=== PATIENT | male | born 2000 | race African-American/Black ===

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

== ENCOUNTER 2021-10-01 00:27 | Inpatient (IN) | payer MEDICAID ==
[~2021-10-01] VITALS: Ht 175.3 cm; Wt 65.8 kg
[2021-10-01 01:00] LABS: Basophils % (auto) 0.4 % (0.0-2.0); Eosinophils # (auto) 0.4 10 ^3/uL (0-0.8); Hemoglobin 13.7 g/dL (13.5-17.5); Monocytes # (auto) 1.5 10 ^3/uL (0-1.3); Neutrophils # (auto) 8.6 10 ^3/uL (1.6-8.6)
[2021-10-01 01:04] LABS: Basophils # (auto) 0.1 10 ^3/uL (0-0.2); Eosinophils % (auto) 3.1 % (0.0-7.0); Hematocrit 40.9 % (41.0-53.0); Lymphocytes # (auto) 1.9 10 ^3/uL (0.4-5.4); Lymphocytes % (auto) 15.7 % (10.0-50.0); Mean Corpuscular Hemoglobin 27.1 pg (28.0-32.0); Mean Corpuscular Hgb Conc. 33.6 g/dL (32.0-36.0); Mean Corpuscular Volume 80.5 fL (80.0-100.0); Neutrophils % (auto) 68.8 % (37.0-80.0); Red Blood Cells 5.08 10^6/uL (4.5-5.90); White Blood Cell 12.4 10^3/uL (4.4-10.8)
[2021-10-01 01:21] LABS: Albumin 3.5 g/dL (3.4-5.0); Calcium 9.2 mg/dL (8.5-10.1); Potassium 3.4 mmol/L (3.5-5.1)
[2021-10-01 01:24] LABS: BUN/Creatinine Ratio 19.3
[2021-10-01 01:27] LABS: Bilirubin, Total 0.6 mg/dL (0.2-1.0); Total Protein 7.9 g/dL (6.4-8.2)
[2021-10-01 02:09] LABS: Alcohol, Urine < 3.0 mg/dL (0-10); Amphetamine Screen, Urine NEGATIVE (NEGATIVE); Barbiturate Scree,Urine NEGATIVE (NEGATIVE); Benzodiazephine Screen, Urine NEGATIVE (NEGATIVE); Cannabinoid Screen, Urine POSITIVE (NEGATIVE); Cocaine Screen, Urine NEGATIVE (NEGATIVE); Opiate Scree,Urine NEGATIVE (NEGATIVE); Phencyclidine Screen, Urine NEGATIVE (NEGATIVE)
[2021-10-01 02:26] LABS: Urine Amorphous Crystal FEW /hpf (None Seen); Urine Bacteria NONE SEEN /hpf (None Seen); Urine Blood Negative /uL (Negative); Urine Mucus FEW (None Seen); Urine Specific Gravity 1.031 (1.001-1.035); Urine WBC 2 /hpf (0 - 3)
[2021-10-01] MEDS ORDERED: ACETAMINOPHEN 325 MG TAB PO PRN (08:30)
[2021-10-01] MEDS ORDERED: POTASSIUM CHL 20 Meq TABLET PO ONE ×2 (08:30→11:30)
[2021-10-01] MEDS ORDERED: ONDANSETRON HCL 4 MG/2 ML VIAL IV PRN (08:30)
[2021-10-01] MEDS ORDERED: MORPHINE SULFATE INJ 2 MG/ml SYRG IV PRN ×2 (08:30→09:15)
[2021-10-01] MEDS ORDERED: HYDROcodone-ACET 5/325MG TAB PO PRN (08:30)
[2021-10-01] MEDS ORDERED: DOCUSATE SOD 100 MG CAP PO PRN (08:30)
[2021-10-01 09:10] LABS: Basophils # (auto) 0 10 ^3/uL (0-0.2); Hemoglobin 13.7 g/dL (13.5-17.5)
[2021-10-01 09:11] LABS: Basophils % (auto) 0.2 % (0.0-2.0); Eosinophils # (auto) 0.3 10 ^3/uL (0-0.8); Eosinophils % (auto) 2.6 % (0.0-7.0); Hematocrit 42.5 % (41.0-53.0); Lymphocytes # (auto) 1.6 10 ^3/uL (0.4-5.4); Mean Corpuscular Hemoglobin 25.8 pg (28.0-32.0); Mean Corpuscular Hgb Conc. 32.1 g/dL (32.0-36.0); Mean Corpuscular Volume 80.2 fL (80.0-100.0); Monocytes # (auto) 1.4 10 ^3/uL (0-1.3); Monocytes % (auto) 13.1 % (0.0-12.0); Neutrophils # (auto) 7.5 10 ^3/uL (1.6-8.6); Neutrophils % (auto) 69.1 % (37.0-80.0); White Blood Cell 10.9 10^3/uL (4.4-10.8)
[2021-10-01] MEDS ORDERED: NITROGLYCERIN 0.4 MG SL TAB SL PRN (09:15)
[2021-10-01 09:27] LABS: Albumin 3.1 g/dL (3.4-5.0); Calcium 8.8 mg/dL (8.5-10.1); Potassium 3.1 mmol/L (3.5-5.1)
[2021-10-01 09:31] LABS: BUN/Creatinine Ratio 19.4; Bilirubin, Total 0.5 mg/dL (0.2-1.0); Total Protein 7.6 g/dL (6.4-8.2)
[2021-10-01] MEDS ORDERED: FAMOTIDINE (10MG/ML) 2ML VL IV SCH (10:00)
[2021-10-01] MEDS: ASPirin 81 mg TAB PO SCH (10:14)
[2021-10-01] MEDS: ENOXAPARIN SOD 40 MG/0.4 ML SYRINGE SC SCH (10:15)
[2021-10-01] MEDS ORDERED: PANTOPRAZOLE 40 MG TAB PO ONE (11:30)
[2021-10-01] MEDS ORDERED: COLCHICINE 0.6 MG CAP PO ONE (11:30)
[2021-10-01 11:45] LABS: Magnesium 2.2 mg/dL (1.6-2.6)
[2021-10-01 11:54] LABS: CRP High Sensitivity 7.71 mg/dL (< 0.3)
[2021-10-01] MEDS: IBUPROFEN 600 MG TAB PO SCH ×3 (14:00→22:20)
[2021-10-01] MEDS: SODIUM CHLOR 0.9% PF (SALINE LOCK) 10ML VIAL/SYR IV SCH ×2 (14:24→21:37)
[2021-10-01] MEDS ORDERED: MORPHINE SULFATE INJ 2 MG/ml SYRG IV ONE (21:30)
[2021-10-01 22:00] VITALS: BP 126/84
[2021-10-01] MEDS ORDERED: KETOROLAC TROMETH 30 MG/ML 1ML VIAL IV ONE (22:00)
[2021-10-02 05:00] VITALS: BP 108/64
[2021-10-02] MEDS: SODIUM CHLOR 0.9% PF (SALINE LOCK) 10ML VIAL/SYR IV SCH ×3 (05:57→21:31)
[2021-10-02] MEDS: IBUPROFEN 600 MG TAB PO SCH ×3 (05:58→21:27)
[2021-10-02 06:29] LABS: Eosinophils # (auto) 0.3 10 ^3/uL (0-0.8); Monocytes % (auto) 14.5 % (0.0-12.0); Red Cell Distribution Width 14.9 % (11.8-14.3)
[2021-10-02 06:32] LABS: Basophils # (auto) 0.1 10 ^3/uL (0-0.2); Basophils % (auto) 0.5 % (0.0-2.0); Eosinophils % (auto) 2.9 % (0.0-7.0); Hematocrit 40.9 % (41.0-53.0); Hemoglobin 13.3 g/dL (13.5-17.5); Lymphocytes # (auto) 1.7 10 ^3/uL (0.4-5.4); Lymphocytes % (auto) 17.5 % (10.0-50.0); Mean Corpuscular Hgb Conc. 32.5 g/dL (32.0-36.0); Monocytes # (auto) 1.4 10 ^3/uL (0-1.3); Neutrophils # (auto) 6.4 10 ^3/uL (1.6-8.6); Neutrophils % (auto) 64.6 % (37.0-80.0); Red Blood Cells 5.11 10^6/uL (4.5-5.90); White Blood Cell 9.9 10^3/uL (4.4-10.8)
[2021-10-02 06:43] LABS: Potassium 3.5 mmol/L (3.5-5.1)
[2021-10-02 06:48] LABS: Calcium 8.8 mg/dL (8.5-10.1)
[2021-10-02 06:57] LABS: Bilirubin, Total 0.7 mg/dL (0.2-1.0); Total Protein 7.3 g/dL (6.4-8.2)
[2021-10-02 09:00] VITALS: BP 104/69
[2021-10-02] MEDS: ASPirin 81 mg TAB PO SCH (09:42)
[2021-10-02] MEDS: PANTOPRAZOLE 40 MG TAB PO SCH (09:42)
[2021-10-02] MEDS: COLCHICINE 0.6 MG CAP PO SCH (09:42)
[2021-10-02] MEDS: ENOXAPARIN SOD 40 MG/0.4 ML SYRINGE SC SCH (09:43)
[2021-10-02 13:00] VITALS: BP 98/68
[2021-10-02 13:56] LABS: INR 1.1 (0.9-1.15); Partial Thromboplastin Time 29.3 sec (23.6-33.0)
[2021-10-02 17:35] VITALS: BP 128/82
[2021-10-02] MEDS ORDERED: IODIXANOL 320MG/ML 100ML BTL IV ONE (18:45)
[2021-10-02] MEDS ORDERED: LIDOCAINE 2%HCL (LOCAL ANESTH.) INJ 10ml MDV ONE (18:45)
[2021-10-02] MEDS ORDERED: fentaNYL CITRATE 100 MCG/2 ML VL ONE (18:48)
[2021-10-02] MEDS ORDERED: HEPARIN SODIUM (PORCINE) 5000 UNITS/ML 1ML VIAL ONE (18:48)
[2021-10-02] MEDS ORDERED: VERAPAMIL 2.5MG/ML INJ 2ML VIAL IV ONE (18:48)
[2021-10-02] MEDS ORDERED: MIDAZOLAM HCL 2MG/2ML 2ml VIAL (1mg/ml) ONE (18:49)
[2021-10-02] MEDS ORDERED: ANGIOMAX 250 MG VIAL IV ONE (18:49)
[2021-10-02] MEDS ORDERED: SODIUM CHL 0.9% 0 ML ONE (18:53)
[2021-10-02 22:00] VITALS: BP 114/76
[2021-10-03 05:26] VITALS: BP 114/71
[2021-10-03] MEDS: SODIUM CHLOR 0.9% PF (SALINE LOCK) 10ML VIAL/SYR IV SCH (05:37)
[2021-10-03] MEDS: IBUPROFEN 600 MG TAB PO SCH (05:38)
[2021-10-03 08:00] VITALS: BP 112/76
[2021-10-03] MEDS ORDERED: AMOXICILLIN TRIHYDRATE 250 MG CAP PO SCH (10:00)
[2021-10-03] MEDS: COLCHICINE 0.6 MG CAP PO SCH (11:01)
[2021-10-03] MEDS: ENOXAPARIN SOD 40 MG/0.4 ML SYRINGE SC SCH (11:02)
[2021-10-03] MEDS: ASPirin 81 mg TAB PO SCH (11:02)
[2021-10-03] MEDS: PANTOPRAZOLE 40 MG TAB PO SCH (11:02)
[2021-10-03 12:00] VITALS: BP 126/99
[2021-10-03] MEDS ORDERED: ATO40T PO ×2 (12:08→13:14)
[2021-10-03] MEDS ORDERED: COLC0.6T56 PO ×2 (12:08→13:14)
[2021-10-03] MEDS ORDERED: AMOX250C3 PO ×2 (12:08→13:14)
[2021-10-03] MEDS ORDERED: ASPI-325 PO ×2 (12:08→13:14)
[2021-10-06 13:47] LABS: Hepatitis A Ab IgM Negative; Hepatitis B Core IgM Negative
[2021-10-06 13:48] LABS: Hepatitis C Antibody Negative (Negative)
== END 2021-10-03 13:46 | disposition home or self-care (01) | DRG 190 ==
LOC: EDBD 00:27 → ER 00:27 → TELE 09:14 → TELE-EAST 18:42
PROVIDERS: ADMIT Nurse Practitioner Family; ATTEND Family Medicine
PROC: 4A023N7 Measurement of Cardiac Sampling and Pressure, Left Heart, Percutaneous Approach (ICD-10-PCS; principal; 2021-10-02)
PROC: B211YZZ Fluoroscopy of Multiple Coronary Arteries using Other Contrast (ICD-10-PCS; 2021-10-02)
PROC: B215YZZ Fluoroscopy of Left Heart using Other Contrast (ICD-10-PCS; 2021-10-02)
DX: I21.4 Non-ST elevation (NSTEMI) myocardial infarction (principal); I51.4 Myocarditis, unspecified; D72.829 Elevated white blood cell count, unspecified; E87.6 Hypokalemia; Z20.822 Contact with and (suspected) exposure to COVID-19; Z86.16 Personal history of COVID-19; R74.01 Elevation of levels of liver transaminase levels
CPT/HCPCS: 36415; 71045; 76705; 80053; 80061; 80074; 80307; 81001; 83735; 83880; 84484; 85025; 85610; 85652; 85730; 86141; 86658; 86703; 87804; 87807; 87880; 93005; 93306; 96374; 99152; 99291; G0378; J1885; J2001; J2250; J3490; Q9967